=== PATIENT | female | born 1960 | race Caucasian/White ===

== ENCOUNTER 2021-09-26 11:55 | Emergency (ER) | payer OTHER ==
[~2021-09-26] VITALS: Ht 157.5 cm; Wt 68.0 kg
== END 2021-09-26 16:00 | disposition home or self-care (01) ==
LOC: ER1 11:55
DX: U07.1 COVID-19 (principal); E11.9 Type 2 diabetes mellitus without complications; I10 Essential (primary) hypertension; Z23 Encounter for immunization
CPT/HCPCS: 71045; 99283; M0245; U0002

== ENCOUNTER → 2022-03-28 | Outpatient (CLI) | payer BC | LOC: KOH-I 10:02 | DX: R07.9 Chest pain, unspecified (principal) | CPT/HCPCS: 71046 ==